=== PATIENT | female | born 1995 | race Caucasian/White ===

== ENCOUNTER 2023-12-17 14:43 | Outpatient (CLI) | payer BC, SELFPAY ==
--- NOTE | 2023-12-17 14:51 | US_ITS ---
FINAL REPORT CLINICAL HISTORY: THYROMEGALY FINDINGS: Sonographic images of the thyroid gland were obtained. The right thyroid lobe measures 4.8 x 1.6 x 1.4 cm. in length. The left thyroid lobe measures 4.5 x 1.0 x 1.3 cm. in length. The thyroid isthmus measures 0.27 cm. The echogenicity is normal. There is a left isthmus nodule measuring 7 x 3 mm which is cystic with microcalcification consistent with TI-RADS category 2. IMPRESSION: Unremarkable thyroid ultrasound. Reviewed, Interpreted and Dictated by Aureliano Galindo III, MD Transcribed by Roslyn Champion Authenticated and [facility]
== END 2023-12-17 23:59 | disposition home or self-care (01) ==
LOC: RAD 14:46
PROVIDERS: PCP Nurse Practitioner Family; Visit Provider Nurse Practitioner Family
DX: E01.0 Iodine-deficiency related diffuse (endemic) goiter (principal)
CPT/HCPCS: 76536

== ENCOUNTER 2024-01-11 14:48 | Outpatient (CLI) | payer BC, SELFPAY ==
[2024-01-21 01:14] LABS: F001-IgE Egg White <0.10 kU/L (Class 0); F002-IgE Milk <0.10 kU/L (Class 0); F003-IgE Codfish <0.10 kU/L (Class 0); F004-IgE Wheat <0.10 kU/L (Class 0); F010-IgE Sesame Seed <0.10 kU/L (Class 0); F013-IgE Peanut <0.10 kU/L (Class 0); F014-IgE Soybean <0.10 kU/L (Class 0); F024-IgE Shrimp <0.10 kU/L (Class 0); F026-IgE Pork < 0.10 kU/L (Class 0); F027-IgE Beef < 0.10 kU/L (Class 0); F088-IgE Lamb < 0.10 kU/L (Class 0); F256-IgE Walnut <0.10 kU/L (Class 0); F338-IgE Scallop <0.10 kU/L (Class 0); Immunoglobulin E, Total 9 IU/mL (6-495); O215-IgE Alpha-Gal < 0.10 kU/L (Class 0)
== END 2024-01-11 23:59 | disposition home or self-care (01) ==
LOC: LAB 14:49
PROVIDERS: PCP Nurse Practitioner Family; Visit Provider Nurse Practitioner Family
DX: T78.3XXS Angioneurotic edema, sequela (principal)
CPT/HCPCS: 36415; 86003; 86008